=== PATIENT | male | born 1985 | race Caucasian/White ===

== ENCOUNTER 2017-05-11 21:26 | Emergency (ER) | payer SELFPAY | END 2017-05-11 23:10 | disposition home or self-care (01) | LOC: D.ER 21:26 | DX: J11.1 Influenza due to unidentified influenza virus with other respiratory manifestations (principal); R50.9 Fever, unspecified ==

== ENCOUNTER 2017-11-23 12:40 | Emergency (ER) | payer SELFPAY ==
[~2017-11-23] VITALS: Ht 167.6 cm; Wt 63.6 kg
[2017-11-23 12:44] VITALS: Ht 167.6 cm; Wt 63.6 kg
[2017-11-23] MEDS ORDERED: CLEOCIN HCL300 MG PO (15:37)
[2017-11-23] MEDS ORDERED: TORADOL10 MG PO (15:37)
[2017-11-23 16:23] VITALS: BP 118/71
== END 2017-11-23 16:23 | disposition home or self-care (01) ==
LOC: D.ER 12:40
DX: K08.89 Other specified disorders of teeth and supporting structures (principal); F17.200 Nicotine dependence, unspecified, uncomplicated

== ENCOUNTER 2018-03-20 22:04 | Emergency (ER) | payer SELFPAY ==
[~2018-03-20] VITALS: Ht 167.6 cm; Wt 65.9 kg
[~2018-03-20 22:04] MED LIST: CLEOCIN HCL300 MG PO; TORADOL10 MG PO
[2018-03-20 22:11] VITALS: Ht 167.6 cm; Wt 65.9 kg
[2018-03-20] MEDS ORDERED: AUGMENTIN 875-11 TAB PO (22:41)
[2018-03-20 23:40] VITALS: BP 122/71
== END 2018-03-20 23:40 | disposition home or self-care (01) ==
LOC: D.ER 22:04
DX: S61.250A Open bite of right index finger without damage to nail, initial encounter (principal); W55.01XA Bitten by cat, initial encounter; Y93.89 Activity, other specified; Y92.019 Unspecified place in single-family (private) house as the place of occurrence of the external cause; F17.200 Nicotine dependence, unspecified, uncomplicated

== ENCOUNTER 2018-06-16 11:20 | Emergency (ER) | payer MEDICAID ==
[~2018-06-16] VITALS: Ht 167.6 cm; Wt 70.5 kg
[~2018-06-16 11:20] MED LIST changes: +AUGMENTIN 875-11 TAB PO
[2018-06-16 11:36] VITALS: Ht 167.6 cm; Wt 70.5 kg
[2018-06-16 12:00] LABS: BASOPHILS 0.2 % (0-2); EOSINOPHILS 0.4 % (0-7); HEMATOCRIT 48.3 % (42.0-54.0); IMMATURE GRANULOCYTES 0.2 % (0-5); LYMPHOCYTES 4.1 % (15-50); MCH 31.5 pg (26.0-34.0); MCHC 35.2 g/dL (31.0-37.0); MCV 89.6 fL (80.0-100.0); MEAN PLATELET VOLUME 11.3 fL (7.4-10.4); MONOCYTES 3.6 % (2-11); NEUTROPHILS 91.5 % (40-80); PLATELET COUNT 183 10x3/uL (130-400); RBC 5.39 10x6/uL (4.20-6.10); WBC 11.2 10x3/uL (4.8-10.8)
[2018-06-16 12:00] LABS: APPEARANCE CLEAR (CLEAR); BILIRUBIN NEGATIVE (NEGATIVE); COLOR YELLOW (YELLOW); GLUCOSE NEGATIVE (NEGATIVE); KETONE NEGATIVE (NEGATIVE); NITRITE NEGATIVE (NEGATIVE); PROTEIN NEGATIVE (NEGATIVE); UROBILINOGEN NORMAL (NORMAL)
[2018-06-16 12:27] LABS: ALBUMIN 4.1 g/dL (3.4-5.0); ALKALINE PHOSPHATASE 49 U/L (46-116); ALT (SGPT) 25 U/L (10-68); BILIRUBIN - TOTAL 0.45 mg/dL (0.2-1.3); CALC OSMOLALITY 278 mosm/kg (275-300); CALCIUM 8.5 mg/dL (8.5-10.1); CARBON DIOXIDE 27.4 mmol/L (21.0-32.0); CHLORIDE - SERUM 99 mmol/L (98-107); GLUCOSE 118 mg/dL (74-106); PROTEIN - SERUM 7.3 g/dL (6.4-8.2); SODIUM 138 mmol/L (136-145); UREA NITROGEN 17 mg/dL (7-18); eGFR NON AFRICAN AMERICAN > 90 mL/min (90-120)
[2018-06-16] MEDS ORDERED: BENTYL 20 MG TA20 MG PO (15:34)
[2018-06-16] MEDS ORDERED: ZOFRAN ODT4 MG/UDTAB PO (15:34)
[2018-06-16 16:06] VITALS: BP 105/64
== END 2018-06-16 16:07 | disposition home or self-care (01) ==
LOC: D.ER 11:20
PROVIDERS: Emergency Medicine
DX: A08.4 Viral intestinal infection, unspecified (principal); R11.2 Nausea with vomiting, unspecified

== ENCOUNTER 2018-12-28 18:50 | Emergency (ER) | payer MEDICAID ==
[~2018-12-28] VITALS: Ht 167.6 cm; Wt 65.9 kg
[~2018-12-28 18:50] MED LIST changes: +BENTYL 20 MG TA20 MG PO; +ZOFRAN ODT4 MG/UDTAB PO
[2018-12-28 18:54] VITALS: Ht 167.6 cm; Wt 65.9 kg
[2018-12-28] MEDS ORDERED: FLUTICASONE PRO16 GM NASAL (20:30)
[2018-12-28] MEDS ORDERED: AUGMENTIN 875-11 TAB PO (20:30)
[2018-12-28 21:00] VITALS: BP 126/79
== END 2018-12-28 20:53 | disposition home or self-care (01) ==
LOC: D.ER 18:50
DX: H66.001 Acute suppurative otitis media without spontaneous rupture of ear drum, right ear (principal); J01.90 Acute sinusitis, unspecified